=== PATIENT | male | born 1960 | race Asian ===

== ENCOUNTER 2023-01-15 12:13 | Day surgery (SDC) | payer OTHER, SELFPAY ==
--- NOTE | 2023-01-15 | PATH_ITS ---
[facility] Accession Number: [id number] No. of containers..01 Tissue . 01 Material submitted: . splenic flexure - SPLENIC . 01 Diagnosis: COLON, SPLENIC FLEXURE, BIOPSY: - BENIGN POLYPOID COLONIC MUCOSA, WITH BENIGN LYMPHOID AGGREGATE. - NEGATIVE FOR DYSPLASIA. TXN 01/17/2023 1622 Local . 01 Electronically signed: . Tawfehans Hussein MD, Pathologist NPI- [id number] . 01 Gross description: . SPLENIC: Received in formalin is 1 fragment(s) of friend, soft tissue measuring 0.4 x 0.2 x 0.1 cm submitted entirely in 1 cassette(s) /AAY 01/16/2023 0609 Local . 01 Pathologist provided ICD-10: Z86.010 . 01 CPT . 423212 Performed at: 01 [facility] [address] [place] [address] [id number] MD Jose Schaefer MD Phone: [phone]
[2023-01-15] MEDS: LACTATED RINGERS 1,000 ML 42 ML IV (13:21)
[2023-01-15 13:43] VITALS: BP 125/86; PULSE 81; RESP 16; TEMP 36.1; O2SAT 97; BMI 31.2
--- NOTE | 2023-01-15 14:21 | P.HP_ITS ---
History of Present Illness History of Present Illness Date Patient Seen: 01/15/23 Chief complaint: SDC Narrative: Follow-up history of colon polyps [facility] Social History household members: spouse Smoking Status: Never smoker alcohol intake: never Meds Home Medications and Allergies Home Medications Medication Instructions Recorded Confirmed Type dulaglutide 4.5 mg/0.5 mL 4.5 mg SUBCUT WEEKLY 01/15/23 01/15/23 History subcutaneous pen injector (Trulicity) fluticasone propionate 50 1 spray intranasal BID 01/15/23 01/15/23 History mcg/actuation nasal spray,suspension hydrochlorothiazide 25 mg tablet 25 mg PO DAILY 01/15/23 01/15/23 History lisinopril 10 mg tablet 10 mg PO DAILY 01/15/23 01/15/23 History loratadine 10 mg tablet 10 mg PO DAILY 01/15/23 01/15/23 History metformin 500 mg tablet,extended 1,000 mg PO BID 01/15/23 01/15/23 History release 24 hr rosuvastatin 5 mg tablet 5 mg PO DAILY 01/15/23 01/15/23 History Allergies Allergy/AdvReac Type Severity Reaction Status Date / Time No Known Drug Allergies Allergy Verified 01/15/23 13:29 Exam Vital Signs (past 8 hours): - 01/15/23 13:43 Temperature 96.9 F L Pulse Rate 81 Respiratory Rate 16 Blood Pressure 125/86 Pulse Oximetry 97 Oxygen Delivery Method Room Air Oxygen Delivery Method Room Air Narrative Exam Narrative: Oropharynx free of lesions Chest clear to auscultation percussion Cardiac exam reveals no S3 or murmur Assessment & Plan Assessment & Plan narrative: History of colon polyps with last colonoscopy recently for a follow-up for large flat polyp. Risks benefits and alternatives have been explained.
--- NOTE | 2023-01-15 14:42 | PM.OP.COLON ---
Operative Date/Time/Diagnoses Date of procedure: 01/15/23 Pre-op diagnosis: See indication and findings Procedure & Clinicians Study performed: Colonoscopy Indications: Personal history of colon polyp with the last colonoscopy approximately 10 years ago. Surgeon: Malik Garcia Procedure Notes Procedure in detail: After informed consent was obtained the patient was placed in left lateral decubitus position. The video colonoscope was introduced the rectum and slowly advanced to cecum. Preparation was good. On slow withdrawal mucosa was carefully examined. The scope was removed. The patient tolerated procedure well. Blood loss none Complications none Sedation mac Findings 1. 5 mm polyp at the splenic flexure Jumbo biopsy removed completely 7 years. 2. Sigmoid diverticulosis 3. Otherwise negative colonoscopy to cecum Will be in touch regarding his pathology. Even if adenomatous Need follow-up for least
[2023-01-15 15:12] VITALS: BP 123/86; PULSE 78; RESP 18; TEMP 36.3; O2SAT 97
[2023-01-15 15:18] VITALS: BP 128/88; PULSE 77; RESP 12; TEMP 36.6; O2SAT 96
[2023-01-15 15:23] VITALS: BP 119/86; PULSE 75; RESP 12; O2SAT 99
[2023-01-15 15:27] VITALS: BP 122/85; PULSE 77; RESP 14; O2SAT 100
== END 2023-01-15 16:10 | disposition home or self-care (01) ==
PROVIDERS: PCP Family Medicine; Referring Provider Internal Medicine Gastroenterology; Visit Provider Internal Medicine Gastroenterology
PROC: 0DJD8ZZ Inspection of Lower Intestinal Tract, Via Natural or Artificial Opening Endoscopic (ICD-10-PCS; CPT 45378; principal; 2023-01-15 14:00)
DX: Z12.11 Encounter for screening for malignant neoplasm of colon (principal); Z86.010 Personal history of colon polyps; K57.30 Diverticulosis of large intestine without perforation or abscess without bleeding
CPT/HCPCS: 45380

== ENCOUNTER → 2023-08-25 08:48 | Outpatient (CLI) | payer OTHER, SELFPAY ==
--- NOTE | 2023-08-25 | DI.MRI.S_ITS ---
PROCEDURE: MR LUMBAR SPINE WO CON INDICATIONS: Radiculopathy, lumbar region TECHNIQUE: Noncontrast sagittal T1 spin echo and T2 fast echo, sagittal STIR, and T2 fast spin echo through the lumbar spine. In cases with scoliosis, additional coronal T2 fast spin echo may be performed. COMPARISON: None. FINDINGS: Image quality: Excellent. Alignment and Curvature: There is normal bony alignment. Bone Marrow: Marrow is of normal overall signal. An intraosseous hemangioma is present at L2. No acute vertebral body compression fractures. Spinal Cord: Conus medullaris terminates at the L1 level. Visualized cord demonstrates normal signal and size. Paraspinous Soft Tissues: No paravertebral masses. T12-L1: Mild disc desiccation and height loss. Mild facet ligamentum flavum hypertrophy. No canal stenosis. No foraminal stenosis. L1-L2: Moderate disc desiccation and height loss. Mild facet ligamentum flavum hypertrophy. No canal stenosis. No foraminal stenosis. L2-L3: Moderate disc desiccation and height loss. Moderate facet ligamentum flavum hypertrophy. Mild canal stenosis. No foraminal stenosis. L3-L4: Moderate disc desiccation and height loss. Moderate facet ligamentum flavum hypertrophy. Moderate canal stenosis. No foraminal stenosis. L4-L5: Moderate disc desiccation and height loss. Severe facet ligamentum flavum hypertrophy. There is a broad-based left paracentral disc protrusion which measures 0.8 x 0.3 x 0.7 cm. There is severe canal stenosis. Mild bilateral foraminal stenosis. L5-S1: Moderate disc desiccation and height loss. There is a central posterior disc protrusion which measures 0.9 x 1.3 by 1.1 cm. There is moderate to severe canal stenosis. There is severe bilateral foraminal stenosis. There is flattening of the right exiting nerve root. IMPRESSION: 1. Central disc protrusions at L4-5 and L5-S1 with resultant moderate to severe canal stenosis. 2. Severe bilateral neural foraminal stenosis at L5-S1. There is flattening of the exiting right nerve root. 3. No other significant canal stenosis or foraminal narrowing of the lumbar spine. Dictated by: Jolie Vides M.D. on 08/25/2023 at 11:57 Approved by: Jolie Vides M.D. on 08/25/2023 at 12:03
--- NOTE | 2023-08-25 08:54 | DI.MRI.S_ITS ---
PROCEDURE: MR HIP LT WO CON INDICATIONS: Radiculopathy, lumbar region TECHNIQUE: Noncontrast coronal T1 spin echo and STIR through the bony pelvis. Coronal and axial T2 fast spin echo with fat saturation, sagittal T1 spin echo, and oblique axial T2 fast spin echo with fat saturation through the hip. COMPARISON: None. FINDINGS: Image quality: Excellent. Bones and joints: Asymmetric moderate left hip joint osteoarthritic changes are seen with superior joint space narrowing, subchondral sclerosis and marginal osteophyte formation. No acute fracture or dislocation. No avascular necrosis of the femoral heads. The visualized lower lumbar spine appears normally aligned. Tendons and ligaments: Low-grade partial-thickness tear involving distal left gluteus medius and minimus tendons at their insertions on greater trochanter. The nearby proximal iliotibial band also appears intact. The iliopsoas tendon appears intact, without adjacent bursal fluid collections or evidence for impingement syndrome. Tendinosis involving left hamstring origins at ischial tuberosity is seen. Labrum and cartilage: Diffuse thinning of articulating cartilage over left femoral head is seen. There is fraying of superior anterior labrum with T2 hyperintense signal suggestive of superior anterior labral tear. Soft tissues: Visualized muscles demonstrate normal bulk and internal signal. Quadratus femoris muscle demonstrates no internal edema to suggest ischiofemoral impingement. The proximal sciatic neurovascular bundle appears normal adjacent to the hamstring tendons. No free pelvic fluid. Bladder wall thickness is normal. Genitourinary structures and bowel loops appear normal where visualized. IMPRESSION: 1. Asymmetric moderate left hip joint osteoarthritis. No acute fracture or dislocation. No evidence of avascular necrosis of femoral head. 2. Low-grade partial-thickness tear involving distal left gluteus medius and minimus tendons extending to musculotendinous junction. Tendinosis involving left hamstring tendon origins at ischial tuberosity. 3. Suggestion of superior anterior left hip labral tear. Dictated by: Martín John M.D. on 08/26/2023 at 16:27 Approved by: Martín John M.D. on 08/26/2023 at 16:29
== END ==
PROVIDERS: PCP Family Medicine; Referring Provider Family Medicine; Visit Provider Family Medicine
DX: M51.16 Intervertebral disc disorders with radiculopathy, lumbar region (principal); M51.17 Intervertebral disc disorders with radiculopathy, lumbosacral region; M48.061 Spinal stenosis, lumbar region without neurogenic claudication; M48.07 Spinal stenosis, lumbosacral region; S76.012A Strain of muscle, fascia and tendon of left hip, initial encounter; M16.12 Unilateral primary osteoarthritis, left hip; M25.552 Pain in left hip; M54.59 Other low back pain; R29.898 Other symptoms and signs involving the musculoskeletal system; R26.89 Other abnormalities of gait and mobility
CPT/HCPCS: 72148; 73721